=== PATIENT | female | born 1975 | race Caucasian/White ===

== ENCOUNTER → 2019-10-03 | Outpatient (CLI) | payer BC ==
[2005-03-30 23:44] VITALS: PULSE 101; TEMP 97.3
[~2019-10-03] MED LIST: NO HOME MEDICATIONS
== END ==
LOC: MC.RAD 07:30
DX: Z12.31 Encounter for screening mammogram for malignant neoplasm of breast (principal)

== ENCOUNTER → 2022-04-04 | Outpatient (CLI) | payer OTHER ==
[2005-03-30 23:44] VITALS: PULSE 101; TEMP 97.3
== END ==
LOC: MC.RAD 08:12
DX: Z12.31 Encounter for screening mammogram for malignant neoplasm of breast (principal)